=== PATIENT | female | born 1940 | race Caucasian/White ===

== ENCOUNTER 2016-12-27 05:35 | Day surgery (SDC) | payer MEDICARE, OTHER ==
[~2016-12-27 05:35] MED LIST: ASPIRIN EC81 MG PO; BENADRYL25 MG; BENICAR40 MG; CLARITIN10 MG/TAB; FISH OIL 1,2001 EAC4 PO; LOPRESSOR100 M1 PO; LOTRIMIN30 GM; MACROBID 100 M100 M1 PO; MAGNESIUM PO; MULTI VITAMIN1 EAC2 PO; OMEPRAZOLE20 M3 PO; PRADAXA150 M1 PO; PREDNISONE10 MG PO; SINEQUAN10 MG PO; VITAMIN B-121000 MC1 PO; VITAMIN D35000 UNI2 PO; ZESTORETIC 20-1 EAC3 PO
[2016-12-27 06:53] LABS: ALB/GLOB RATIO 1.3 (0.8-2.0); ALBUMIN 3.8 g/dl (3.5-5.0); ALKALINE PHOSPHATASE 72 U/L (33-138); ALT/SGPT 21 U/L (12-78); ANION GAP 10 mmol/L (0-20); AST/SGOT 23 U/L (10-40); BILIRUBIN,TOTAL 0.7 mg/dl (0-1.5); BLOOD UREA NITROGEN 12 mg/dl (6-24); CALCIUM 9.2 mg/dl (8.5-10.5); CARBON DIOXIDE-VENOUS 29 mmol/L (22-32); CHLORIDE 104 mmol/l (96-110); CREATININE 1.08 mg/dl (0.50-1.10); GLUCOSE 110 mg/dL (70-110); SODIUM 139 mmol/L (135-145); eGFR VALUE FOR BLACK 58 mL/Min
== END 2016-12-27 14:30 ==
LOC: SRG 05:35 → SHSC 05:37 → ORW 10:51 → PACU 12:02 → SHSC 12:35
PROVIDERS: Specialist
PROC: 07B60ZX Excision of Left Axillary Lymphatic, Open Approach, Diagnostic (ICD-10-PCS; principal; 2016-12-27)
DX: C77.3 Secondary and unspecified malignant neoplasm of axilla and upper limb lymph nodes (principal); C50.912 Malignant neoplasm of unspecified site of left female breast; I48.91 Unspecified atrial fibrillation; I10 Essential (primary) hypertension; I73.9 Peripheral vascular disease, unspecified; R55 Syncope and collapse; M19.90 Unspecified osteoarthritis, unspecified site; G43.909 Migraine, unspecified, not intractable, without status migrainosus; I27.2 Other secondary pulmonary hypertension; K21.9 Gastro-esophageal reflux disease without esophagitis; K44.9 Diaphragmatic hernia without obstruction or gangrene; Z79.82 Long term (current) use of aspirin; Z79.899 Other long term (current) drug therapy; Z88.1 Allergy status to other antibiotic agents; Z88.2 Allergy status to sulfonamides; Z88.8 Allergy status to other drugs, medicaments and biological substances; Z87.440 Personal history of urinary (tract) infections; Z90.49 Acquired absence of other specified parts of digestive tract; Z90.710 Acquired absence of both cervix and uterus; Z90.89 Acquired absence of other organs; Z98.890 Other specified postprocedural states
CPT/HCPCS: A9520; J0690; J2765; Q9968